=== PATIENT | female | born 1945 | race Caucasian/White ===

== ENCOUNTER → 2024-04-30 15:23 | Outpatient (REF) | payer MEDICARE, OTHER, SELFPAY | LOC: HWRAD 15:23 | PROVIDERS: ATTENDING PHYSICIAN Student in an Organized Health Care Education/Training Program | DX: M47.20 Other spondylosis with radiculopathy, site unspecified (principal) | CPT/HCPCS: 72052; 72072; 72110 ==

== ENCOUNTER 2024-05-16 21:07 | Emergency (ER) | payer MEDICARE, OTHER, SELFPAY ==
[2024-05-16 21:09] VITALS: BP 154/91
[2024-05-16 21:40] VITALS: BMI 27.9
--- NOTE | 2024-05-16 22:13 | ED.GENMED ---
History of Present Illness
General
Chief Complaint: Skin Surface Trauma
Time Seen by Provider: 05/16/24 21:35
Travel History
Have you had any contact with someone who has COVID-19?: No
Do you have any symptoms of coronavirus? Fever > 100 degrees, chills, cough, shortness of breath, sore throat, loss of taste or smell, muscle aches, or headache?: No
History of Present Illness
History of Present Illness:
78-year-old female presents to the emergency department for evaluation of a minor right lower leg laceration sustained after she dropped a knife while in the kitchen and struck her leg. Bleeding is controlled. Last tetanus was within the past 1
year. She is able to ambulate
Past History
Past History
ED Past Medical History: Other (Foot drop, chronic right leg wound)
ED Past Surgical History: None
Social History
Tobacco: Non-smoker
Alcohol: None
Drug: None
Living: with family
Review of Systems
Review of Systems
Allergies reviewed?: Yes
All Other Systems: ROS reviewed and negative except as documented in HPI and ROS
Phy Exam
Physical Exam
Physical Exam:
GEN: Well appearing, NAD, WDWN
HEENT: Oral mucosa moist, no scleral icterus
Cardiac: Regular rate
Lung: No respiratory distress, no tachypnea
MSK: No gross deformity or injuries
Skin: Good color, no pallor or jaundice, no rashes. 1 cm V-shaped laceration to the anterior right lower leg no active bleeding, no foreign bodies
Neuro: AO x3, moves all extremities freely
Psych: Calm, cooperative
Course
Vital Signs
Initial and Last Documented VS:
Initial Vital Signs
Temp Pulse Resp BP Pulse Ox
98.5 F 76 20 154/91 98
05/16/24 21:09 05/16/24 21:09 05/16/24 21:09 05/16/24 21:09 05/16/24 21:09
Last Documented Vital Signs
Temp Pulse Resp BP Pulse Ox
98.5 F 76 20 154/91 98
05/16/24 21:09 05/16/24 21:09 05/16/24 21:09 05/16/24 21:09 05/16/24 21:09
Procedures
Laceration Closure
Right Lower Leg:
Status of Wound: clean
Size of Wound in cm: 1
Description of Wound Edges: flap-well vascularized
Preparation: cleaned with saline
Anesthesia: 1% Lidocaine with epi
Wound exploration: explored to base- no FB
Type of Closure: single layer closure
Skin Closure Material: 5-0 prolene
Number of sutures: 2
MDM/Problems Addressed
MDM/Problems Addressed:
Wound care guidelines discussed with the patient. No evidence of foreign body
*Critical Care Note
Total Time (30-74mins, 75-104mins- exclusive of procedures): Not Applicable
ED Attending Note
-
Portions of this chart may have been created with voice recognition software.� Occasional wrong word or��sound alike� substitutions may have occurred due to the inherent limitations of voice recognition software.
Discharge Plan
Departure
Patient Disposition: Home (Routine Discharge)
Date of Disposition: 05/16/24
Time of Disposition: 22:37
Patient with high blood pressure during this ER visit?: No
Discharge Problem:
Laceration of leg, right
Instructions: Laceration Repair With Stitches (DC)
Prescriptions:
No Action
polyethylene glycol 3350 17 GRAMS powder in packet
17 grams PO HS
omeprazole 20 MG capsule,delayed release(DR/EC)
20 mg PO DAILY
estradiol [Estring] 1 VAG.RING ring
1 vag.ring VG .[id number]
Patient Comments:
Due January
fluticasone propionate 1 SPRAY spray,suspension
2 spray intranasal HS
Biotin
5,000 mcg PO DAILY
Vesicare:
10 mg PO DAILY
doxycycline hyclate 100 MG capsule
100 mg PO BID Qty: 10 0RF
gabapentin [Neurontin] 600 MG tablet
600 mg PO TID
doxycycline hyclate 100 MG capsule
100 mg PO Q12
diphenhydramine-acetaminophen 480 ML solution
1 cap PO HSPRN PRN (Reason: sleep)
Referrals:
Eric Heaton MD [Family Provider] -
Activity Restrictions/Additional Instructions:
Sutures can be removed in 10-14 days
The surgical tape will fall off in 3-5 days
Keep dry for 24 hours
Interventions
Interventions:
*Risk Screen - Suicide Last Done: 05/16/24 21:40
*General Assessment Last Done: 05/16/24 22:57
*Neglect/Abuse Screening Last Done: 05/16/24 21:40
ED- Fall Risk Assessment Last Done: 05/16/24 21:40
*ED COVID-19 Vaccine History Last Done: 05/16/24 22:57
*Nursing Disposition Last Done: 05/16/24 22:57
ED-Skin Assessment Last Done: 05/16/24 21:40
Discharge Date and Time
Discharge Date/Time: 05/16/24 22:58
Print Language: CZECH
== END 2024-05-16 22:58 | disposition home or self-care (01) ==
LOC: EMR 21:07
PROVIDERS: EMERGENCY PHYSICIAN Emergency Medicine; FAMILY PHYSICIAN Internal Medicine
DX: S81.811A Laceration without foreign body, right lower leg, initial encounter (principal); W26.0XXA Contact with knife, initial encounter; Z88.1 Allergy status to other antibiotic agents; Z88.3 Allergy status to other anti-infective agents; Z91.030 Bee allergy status; Z91.040 Latex allergy status; Z88.5 Allergy status to narcotic agent; Z88.0 Allergy status to penicillin; Z88.2 Allergy status to sulfonamides; Z88.8 Allergy status to other drugs, medicaments and biological substances; Z91.048 Other nonmedicinal substance allergy status
CPT/HCPCS: 99282; 12001

== ENCOUNTER → 2024-12-02 13:14 | Outpatient (REF) | payer MEDICARE, OTHER, SELFPAY | LOC: WDC 13:14 | PROVIDERS: ATTENDING PHYSICIAN Physician Assistant | DX: Z12.31 Encounter for screening mammogram for malignant neoplasm of breast (principal) | CPT/HCPCS: 77063; 77067 ==

== ENCOUNTER → 2025-06-06 14:47 | Outpatient (REF) | payer MEDICARE, OTHER, SELFPAY | LOC: EMG 14:47 | PROVIDERS: ATTENDING PHYSICIAN Psychiatry & Neurology Neurology; FAMILY PHYSICIAN Physician Assistant | DX: M54.17 Radiculopathy, lumbosacral region (principal); R20.0 Anesthesia of skin | CPT/HCPCS: 95886; 95911 ==

== ENCOUNTER → 2025-06-07 10:27 | Outpatient (REF) | payer MEDICARE, OTHER, SELFPAY | LOC: RAD 10:27 | PROVIDERS: ATTENDING PHYSICIAN Internal Medicine Rheumatology; FAMILY PHYSICIAN Internal Medicine | DX: M81.0 Age-related osteoporosis without current pathological fracture (principal) | CPT/HCPCS: 77080 ==